=== PATIENT | male | born 1980 | race Caucasian/White ===

== ENCOUNTER 2018-05-03 08:44 | Emergency (ER) | payer BC ==
[2018-05-03 08:49] VITALS: BP 144/87
[2018-05-03] MEDS ORDERED: Lidocaine 2% 10 ML* VIAL INJ ONE (09:14)
[2018-05-03] MEDS ORDERED: Lidocaine 2% VISCOUS* 15 ML UDC PO ONE (09:14)
[2018-05-03] MEDS ORDERED: Lidocaine 2% PF * 5 ML VIAL ONE (09:27)
[2018-05-03] MEDS ORDERED: Acetaminophen TAB* 325 MG PO ONE (09:48)
[2018-05-03] MEDS ORDERED: Clindamycin CAP* 150 MG PO ONE ×2 (10:22→10:24)
--- NOTE | 2018-05-13 15:50 | ED ---
Throat Pain/Nasal Congestion - HPI Summary HPI Summary: PATIENT SEEN 05/03/2018: Pt presents w/ Lt lower dental pain past few days. Has been trying to cope by taking PCN (4 x day from previous refill rx) and ibuprofen w/o relief. Getting worse. H/o reggie here - needs dentist appt but in the meantime would like to try clindamycin which has worked well in the past. Denies drainage, fever, chills, difficulty breathing or swallowing, ear pain, PUCKETT, neck pain or stiffness. Pain is worse w/ change in temp, chewing but still consuming food/ liquids. Admits to h/o opiate dependence x 10 yrs. Has been taking suboxone successfully. Does not request opiate medication for pain. - History of Current Complaint Chief Complaint: EDDentalPain Time Seen by Provider: 05/03/18 09:03 Hx Obtained From: Patient, Family/Training Development Specialist - - Allergies/Home Medications Allergies/Adverse Reactions: Allergies Allergy/AdvReac Type Severity Reaction Status Date / Time No Known Allergies Allergy Verified 05/03/18 08:50 PMH/Surg Hx/FS Hx/Imm Hx Previously Healthy: Yes Endocrine/Hematology History: Denies: Hx Anticoagulant Therapy, Hx Blood Disorders, Hx Blood Transfusions, Hx Bone Marrow Disease, Hx Diabetes, Hx Systemic Lupus Erythematosus, Hx Sickle Cell Disease, Hx Thyroid Disease, Hx Anemia, Hx Unexplained Bleeding, Other Endocrine/Hematological Disorders Cardiovascular History: Denies: Hx Aneurysm, Hx Angina, Hx Angioplasty, Hx Auto Implanted Cardiovert Defib, Hx Cardiac Arrest, Hx Cardiomegaly, Hx Congenital Heart Disease, Hx Congestive Heart Failure, Hx Coronary Artery Disease, Hx Deep Vein Thrombosis, Hx Embolism, Hx Hypercholesterolemia, Hx Hypotension, Hx Hypertension, Hx Pacemaker/ICD, Hx Peripheral Vascular Disease, Hx Rheumatic Fever, Hx Syncope, Hx Valvular Heart Disease, Other Cardiovascular Problems/Disorders Respiratory History: Reports: Hx Asthma Denies: Hx Chronic Bronchitis, Hx Chronic Obstructive Pulmonary Disease (COPD ), Hx Cystic Fibrosis, Hx Lung Cancer, Hx Pleural Effusion, Hx Pneumonia, Hx Pulmonary Edema, Hx Pulmonary Embolism, Hx Seasonal Allergies, Hx Sleep Apnea, Other Respiratory Problems/Disorders GI History: Reports: Hx Ulcer Denies: Hx Cirrhosis, Hx Crohn's Disease, Hx Diverticulosis, Hx Gall Bladder Disease, Hx Gastroesophageal Reflux Disease, Hx Gastrointestinal Bleed, Hx Hiatal Hernia, Hx Irritable Bowel, Hx Jaundice, Hx Obstructive Bowel, Hx Ileostomy, Hx Pyloric Stenosis, Other GI Disorders History: Reports: Hx Kidney Stones, Hx Renal Disease - kidney stones Denies: Hx Acute Renal Failure, Hx Benign Prostatic Hyperplasia, Hx Chronic Renal Failure, Hx Dialysis, Hx Kidney Infection, Other Problems/Disorders Musculoskeletal History: Denies: Hx Arthritis, Hx Back Problems, Hx Bursitis, Hx Congenital Bone Abnormalities, Hx Fibromyalgia, Hx Gout, Hx Orthopedic Injury, Hx Osteoporosis, Hx Scoliosis, Hx Tendonitis, Other Musculoskeletal History Sensory History: Reports: Hx Contacts or Glasses Denies: Hx Cataracts, Hx Eye Injury, Hx Eye Prosthesis, Hx Glaucoma, Hx Legally Blind, Hx Macular Degeneration, Hx Vision Problem, Hx Deafness, Hx Hearing Aid, Hx Hearing Problem, Other Sensory Impairments Opthamlomology History: Reports: Hx Contacts or Glasses Denies: Hx Cataracts, Hx Eye Injury, Hx Eye Prosthesis, Hx Glaucoma, Hx Legally Blind, Hx Macular Degeneration, Hx Vision Problem, Other Sensory Impairments Neurological History: Reports: Hx Migraine Denies: Hx Dementia, Hx Developmental Delay, Hx Headaches, Hx Nerve Disease, Hx Seizures, Hx Spinal Cord Injury, Hx Transient Ischemic Attacks (TIA), Other Neuro Impairments/Disorders Psychiatric History: Reports: Hx Anxiety, Hx Attention Deficit Hyperactivity Disorder, Hx Depression, Hx Post Traumatic Stress Disorder, Hx Inpatient Treatment, Hx Community Mental Health Tx, Hx of Violent Episodes Against Others , Hx Substance Abuse - on suboxone Denies: Hx Eating Disorder, Hx Panic Disorder, Hx Schizophrenia, Hx Bipolar Disorder, Hx Suicide Attempt, Other Psychiatric Issues/Disorders - Surgical History Surgery Procedure, Year, and Place: litho with stent placement last year for kidney stones Hx Anesthesia Reactions: No - Immunization History Date of Tetanus Vaccine: 2009 Date of Influenza Vaccine: None this season; had the flu though. 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 Lives: With Family - , kids Alcohol Use: None Hx Substance Use: Yes Substance Use Comment - Amount & Last Used: recovering addiction to bath salts - on suboxone Hx Tobacco Use: Yes Type: eCigarettes Review of Systems Constitutional: Negative Eyes: Negative Positive: Dental Pain Cardiovascular: Negative Respiratory: Negative Gastrointestinal: Negative Positive: no symptoms reported Musculoskeletal: Negative Skin: Negative Neurological: Negative Psychological: Normal All Other Systems Reviewed And Are Negative: Yes Physical Exam Triage Information Reviewed: Yes Vital Signs On Initial Exam: Initial Vitals Temp Pulse Resp BP Pulse Ox 97.7 F 61 16 144/87 98 05/03/18 08:46 05/03/18 08:46 05/03/18 08:46 05/03/18 08:46 05/03/18 08:46 Vital Signs Reviewed: Yes Appearance: Positive: Well-Appearing, Pain Distress - mild to moderate, Obese Skin: Positive: Warm, Skin Color Reflects Adequate Perfusion, Dry - no rash or swelling on face/neck Head/Face: Positive: Normal Head/Face Inspection Eyes: Positive: Normal, EOMI, Conjunctiva Clear. Negative: Conjunctiva Inflammed, Discharge ENT: Positive: Hearing grossly normal, Pharynx normal - mucosa moist, TMs normal , Dental tenderness - #20, 21 - discrete carries - otherwise appears to have relatively healthy dentition and gingiva - no diffuse decay throuhout cavity, edema, d/c nor pustules, Uvula midline. Negative: Nasal congestion, Tonsillar swelling, Tonsillar exudate, Trismus, Sinus tenderness Dental: Negative: Abscess @, Cellulitis @ Neck: Positive: Supple, Nontender, No Lymphadenopathy Respiratory/Lung Sounds: Positive: Breath Sounds Present Cardiovascular: Positive: Normal Musculoskeletal: Positive: Normal, Strength/ROM Intact Neurological: Positive: Normal, Sensory/Motor Intact, Alert, Oriented to Person Place, Time, CN Intact II-III Psychiatric: Positive: Normal - pleasant, cooperative, polite Procedures - Procedure Summary Procedure Summary: Placed lidocaine viscous over affected areas followed by injection of lidcaine 1 % -dental nerve block of #20, 21 with dycal placement - Pt tolerated well and reports relief. Diagnostics - Vital Signs Vital Signs Temp Pulse Resp BP Pulse Ox 05/03/18 10:43 97.2 F 61 16 144/87 98 05/03/18 08:46 97.7 F 61 16 144/87 98 - Laboratory Lab Statement: Any lab studies that have been ordered have been reviewed, and results considered in the medical decision making process. Re-Evaluation - Re-Evaluation First Eval Change: Improved EENT Course/Dx - Course Course Of Treatment: Suspect nerve irritation from exposure - cleaned and covered affected areas with dycal - education about how this is a temporary fix and needs dental intervetion ASAF. Switched from PCN to clindamycin - no sunni abscess observed. Reviewed danger s/sx of when to return to ED. Pt and agree w/ plan. - Diagnoses Provider Diagnoses: Pain due to dental caries - Provider Notifications Instructed by Provider To: Have Pt Call For Appt. Discharge - Sign-Out/Discharge Documenting (check all that apply): Patient Departure - Discharge Plan Condition: Stable Disposition: HOME Prescriptions: Clindamycin HCl 450 mg PO Q6HR #36 capsule Patient Education Materials: Toothache (ED) Referrals: Ludivina Gallardo MD [Primary Care Provider] - Additional Instructions: You have a temporary seal over affected areas - this may last for 24-48 hours - drink liquids and soft foods to prevent premature loosening/removal Take antibiotics as directed Start probiotics in between antibiotics (ie. Yogurt and/or capsules of L. acidophilus, L. bifidus, L. casei, etc) You may take ibuprofen 800mg q 8 hours with food alternating with acetaminophen extra strength every 6 hours as needed for pain Follow-up with dentist this week - call tomorrow for appointment *If you develop fever,chills, neck pain, swelling, headache, eye or ear pain, return to the ED - Billing Disposition and Condition Condition: STABLE Disposition: Home
== END 2018-05-03 10:43 | disposition home or self-care (01) ==
LOC: ED 08:44
DX: K02.9 Dental caries, unspecified (principal)
CPT/HCPCS: 96374; 99282; A9270-GY